=== PATIENT | male | born 1980 | race Caucasian/White ===

== ENCOUNTER 2020-09-18 11:12 | Emergency (ER) | payer SELFPAY ==
[~2020-09-18] VITALS: Ht 177.8 cm; Wt 93.9 kg
[~2020-09-18 11:12] MED LIST: CEPHALEXIN250 MG PO; NORCO 5-325 TA1 EACH PO; PENICILLIN V P500 MG PO
[2020-09-18] MEDS ORDERED: FAMCICLOVIR500 MG PO (11:35)
[2020-09-18] MEDS ORDERED: HYDROCODON-ACE1 EA11 PO (11:35)
== END 2020-09-18 11:41 | disposition home or self-care (01) ==
LOC: ED 11:12
DX: B02.9 Zoster without complications (principal)
CPT/HCPCS: 99282; A9270

== ENCOUNTER 2022-07-27 11:09 | Emergency (ER) | payer SELFPAY ==
[~2022-07-27] VITALS: Ht 177.8 cm; Wt 98.4 kg
[~2022-07-27 11:09] MED LIST changes: +FAMCICLOVIR500 MG PO; +HYDROCODON-ACE1 EA11 PO
[2022-07-28 12:12] VITALS: BP 131/94
== END 2022-07-28 12:12 | disposition home or self-care (01) ==
LOC: ED 11:09
DX: R45.851 Suicidal ideations (principal)
CPT/HCPCS: 36415; 80053; 81003; 84443; 85025; 99284; G0480